=== PATIENT | female | born 1955 | race Caucasian/White ===

== ENCOUNTER 2024-07-02 17:42 | Emergency (ER) | payer OTHER ==
[~2024-07-02] VITALS: Ht 160 cm; Wt 104.3 kg
[2024-07-02] MEDS ORDERED: HYDROcodone 5-APAP 325 TAB PO ONE (20:35)
[2024-07-02] MEDS ORDERED: Diphth,Pertuss(Acell),Tet Vac 0.5 ML VIAL IM ONE (20:35)
== END 2024-07-02 22:23 | disposition home or self-care (01) ==
LOC: ER 17:42
DX: S01.81XA Laceration without foreign body of other part of head, initial encounter (principal); W01.0XXA Fall on same level from slipping, tripping and stumbling without subsequent striking against object, initial encounter; Z88.6 Allergy status to analgesic agent; Z23 Encounter for immunization
CPT/HCPCS: 12001; 70450; 90471; 90715; 99283-25; A9270